=== PATIENT | female | born 1995 | race Two or more races ===

== ENCOUNTER 2023-04-09 03:54 | Emergency (ER) | payer OTHER ==
[~2023-04-09] VITALS: Ht 167.6 cm; Wt 58.1 kg
[2023-04-09 07:06] LABS: HEMATOCRIT 29.7 % (36.0-45.00); HEMOGLOBIN 9.3 g/dL (12.0-15.00); MEAN CELL VOLUME 71.7 fL (80.00-100.00); MEAN CORPUSCULAR HEMOGLOBIN 22.3 pg (27.00-32.0); MEAN CORPUSCULAR HGB CONC 31.1 g/dl (32.0-36.0); PLATELET COUNT 247 K/uL (150-450); RED BLOOD COUNT 4.15 M/uL (4.00-6.00); RED CELL DISTRIBUTION WIDTH 18.3 % (11.5-14.5)
[2023-04-09 07:07] LABS: ALBUMIN 3.4 gm/dL (3.4-5.0); ALKALINE PHOSPHATASE 49 U/L (50-136); ALT/SGPT 17 U/L (12-78); AMYLASE 66 U/L (25-115); ANION GAP 10 (10.0-20.0); AST/SGOT 12 U/L (15-37); BILIRUBIN TOTAL 0.29 mg/dL (0.3-1.2); BLOOD UREA NITROGEN 14 mg/dL (7-18); BUN CREA RATIO 19 (7.0-25.0); CALCIUM 8.5 mg/dL (8.5-10.1); CARBON DIOXIDE 25 mEq/L (21-32); CHLORIDE 110 mmol/L (98-107); CREATININE SERUM 0.72 mg/dL (0.55-1.02); GFR 96.45; GLOBULINA 3.6 G/DL (2.4-3.5); GLUCOSE FASTING 113 mg/dL (65-100); LIPASE 30 U/L (13-75); OSMOLALITY SERUM 283 MOSM/KG (275-295); POTASSIUM 4.05 mEq/L (3.5-5.1); SODIUM 141 mmol/L (136-145)
[2023-04-09 07:16] LABS: HCG QUANTITATIVE < 1 mUI/mL (1-3)
[2023-04-09 08:01] LABS: URINE APPEARANCE Clear; URINE BILIRRUBIN Negative (NEGATIVE); URINE BLOOD Negative; URINE COLOR Yellow; URINE GLUCOSE Negative (NEGATIVE); URINE LEUKOCYTE Negative; URINE NITRATE Positive; URINE PROTEIN Trace (NEGATIVE)
[2023-04-09 08:04] LABS: URINE BACTERIA 2057.5 uL (0.0-1933); URINE RBC 3.4 uL (0.0-20.8)
[2023-04-09] MEDS ORDERED: CEPHALEXIN500 MG PO (08:40)
[2023-04-09] MEDS ORDERED: PEPCID40 MG PO (08:40)
[2023-04-09] MEDS ORDERED: ONDANSETRON ODT4 MG PO (08:40)
== END 2023-04-09 09:00 ==
LOC: ER 03:55
PROVIDERS: General Practice
DX: N39.0 Urinary tract infection, site not specified (principal); R10.9 Unspecified abdominal pain; R11.10 Vomiting, unspecified